=== PATIENT | female | born 1960 | race Caucasian/White ===

== ENCOUNTER 2023-01-09 09:53 | Emergency (ER) | payer BC, OTHER ==
[2023-01-09 10:02] VITALS: BMI 27.1
[2023-01-09] MEDS ORDERED: predniSONE 20 MG TABLET (UD) PO ONE (11:24)
[2023-01-09] MEDS ORDERED: diphenhydrAMINE HCL 25 MG CAPSULE (FP) PO ONE ×2 (11:24→11:33)
[2023-01-09] MEDS ORDERED: DOXYCYCLINE HYCLATE 100 MG CAPSULE PO ONE ×2 (11:25→11:34)
[2023-01-09] MEDS ORDERED: predniSONE 20 MG TABLET (UD) ONE (11:33)
[2023-01-09 13:01] VITALS: BP 120/57
[2023-01-09 13:04] VITALS: PULSE 78; RESP 19; TEMP 97.7
== END 2023-01-09 13:05 | disposition home or self-care (01) ==
LOC: JER 09:53
DX: R21 Rash and other nonspecific skin eruption (principal); L23.7 Allergic contact dermatitis due to plants, except food
CPT/HCPCS: 99283-25